=== PATIENT | male | born 1985 ===

== ENCOUNTER 2018-01-22 13:41 | Emergency (ER) | payer BC ==
[~2018-01-22] VITALS: Ht 180.3 cm; Wt 72.6 kg
== END 2018-01-22 14:36 | disposition home or self-care (01) ==
LOC: ER 13:41
DX: S60.512A Abrasion of left hand, initial encounter (principal); W45.8XXA Other foreign body or object entering through skin, initial encounter; Y93.89 Activity, other specified; Y92.413 State road as the place of occurrence of the external cause; Y99.8 Other external cause status